=== PATIENT | male | born 1980 | race Caucasian/White ===

== ENCOUNTER 2017-03-17 16:03 | Emergency (ER) | payer SELFPAY ==
[~2017-03-17 16:03] MED LIST: CIPRO PO; FLAGYL PO; ZOFRAN PO
[2017-03-17 18:08] LABS: CALCIUM SERUM 8.4 mg/dL (8.4-10.2); CREATININE SERUM 0.9 mg/dL (0.6-1.4); GLOM FILT RATE Estimated 110.3 mL/min (>60); POTASSIUM 3.1 mmol/L (3.5-5.1)
== END 2017-03-17 19:40 | disposition home or self-care (01) ==
LOC: CED 16:03
PROVIDERS: Emergency Medicine
DX: F11.129 Opioid abuse with intoxication, unspecified (principal); F10.129 Alcohol abuse with intoxication, unspecified; E87.6 Hypokalemia; I10 Essential (primary) hypertension; F17.200 Nicotine dependence, unspecified, uncomplicated
CPT/HCPCS: 36415; 80048; 96360; 99284; G0480